=== PATIENT | female | born 1985 | race Caucasian/White ===

== ENCOUNTER 2016-10-19 12:19 | Emergency (ER) | payer MEDICAID, OTHER ==
[~2016-10-19] VITALS: Ht 167.6 cm; Wt 90.7 kg
[2016-10-19 13:29] LABS: Basophils # (auto) 0.2 uL; Basophils % (auto) 1.3 % (0.0-2.0); Eosinophils # (auto) 0.1 uL; Eosinophils % (auto) 0.7 % (0.0-7.0); Hematocrit 41.6 % (36.0-46.0); Hemoglobin 13.8 g/dL (12.2-16.2); Lymphocytes # (auto) 1.7 uL; Lymphocytes % (auto) 11.8 % (10.0-50.0); Mean Corpuscular Hemoglobin 29.3 pg (28.0-32.0); Mean Corpuscular Volume 88.7 fL (80.0-100.0); Mean Platelet Volume 9.2 fL (7.4-10.4); Monocytes % (auto) 6.8 % (0.0-12.0); Neutrophils # (auto) 11.5 uL; Neutrophils % (auto) 79.4 % (37.0-80.0); Platelet Count (auto) 256 10^3/uL (140-450); Red Cell Distribution Width 12.6 % (11.6-16.0); White Blood Cell 14.4 10^3/uL (4.4-10.8)
[2016-10-19 13:52] LABS: Albumin 3.6 g/dL (3.4-5.0); BUN/Creatinine Ratio 6.3; Bilirubin, Total 0.4 mg/dL (0.2-1.0); Calcium 8.9 mg/dL (8.5-10.1); Potassium 3.8 mmol/L (3.5-5.1); Total Protein 8.3 g/dL (6.4-8.2)
[2016-10-19] MEDS ORDERED: SODIUM CHLORIDE 0.9% 1,000 ML IVB ONE (15:35)
[2016-10-19] MEDS ORDERED: cefTRIAXone 1GM/50ML D5W 50 ML IV ONE (15:45)
[2016-10-19 16:12] LABS: INR 1.04 (0.9-1.15); Partial Thromboplastin Time 29.9 sec (22.64-33.71); Prothrombin Time 10.7 sec (9.37-12.3)
[2016-10-19 16:17] LABS: Urine Bilirubin Negative (Negative); Urine Color Yellow (Yellow); Urine Glucose Normal (Normal); Urine Ketone Negative (Negative); Urine Mucus FEW (None Seen); Urine Nitrite Negative (Negative); Urine RBC <1 /hpf (0 - 4); Urine Squamous Epithelial Cell FEW /hpf (<5); Urine Urobilinogen Normal (Negative); Urine pH 5.5 (5.0-8.0)
[2016-10-19 16:19] LABS: B-Type Natriuretic Peptide 4.11 pg/mL (0-100); Temperature: 23.1 C (20.0-25.0)
[2016-10-19 16:49] LABS: Urine Blood 2+ /uL (Negative)
[2016-10-19] MEDS ORDERED: ASPirin-EC 81 mg tab PO ONE ×2 (18:30→18:56)
[2016-10-19] MEDS ORDERED: KETOROLAC TROMETH 30 MG/ML 1ML VIAL IV ONE (18:30)
[2016-10-19 19:30] VITALS: BP 138/79
== END 2016-10-19 19:53 | disposition home or self-care (01) ==
LOC: ER 12:24
DX: J02.9 Acute pharyngitis, unspecified (principal); R07.89 Other chest pain; F17.210 Nicotine dependence, cigarettes, uncomplicated; J18.9 Pneumonia, unspecified organism; R94.6 Abnormal results of thyroid function studies; R06.02 Shortness of breath
CPT/HCPCS: 36415; 71020; 80053; 81001; 81025; 83735; 83880; 84443; 84484; 85025; 85379; 85610; 85730; 87040; 93005; 94761; 96365; 96375; 99285; J0696; J1885

== ENCOUNTER 2019-01-18 11:26 | Inpatient (IN) | payer MEDICAID ==
[~2019-01-18] VITALS: Ht 172.7 cm; Wt 112.3 kg
[2019-01-18 12:14] LABS: Basophils # (auto) 0 uL; Basophils % (auto) 0.4 % (0.0-2.0); Eosinophils # (auto) 0.1 uL; Eosinophils % (auto) 1.5 % (0.0-7.0); Hematocrit 46.3 % (36.0-46.0); Hemoglobin 15.5 g/dL (12.2-16.2); Lymphocytes # (auto) 1.8 uL; Lymphocytes % (auto) 24.8 % (10.0-50.0); Mean Corpuscular Hgb Conc. 33.4 g/dL (32.0-36.0); Mean Corpuscular Volume 89.6 fL (80.0-100.0); Monocytes # (auto) 0.5 uL; Monocytes % (auto) 6.9 % (0.0-12.0); Neutrophils # (auto) 4.8 uL; Neutrophils % (auto) 66.4 % (37.0-80.0); Nucleated Red Blood Cells % 0.1 %; Platelet Count (auto) 267 10^3/uL (140-450); Red Blood Cells 5.16 10^6/uL (4.0-5.20); White Blood Cell 7.2 10^3/uL (4.4-10.8)
[2019-01-18 12:51] LABS: Urine Bacteria FEW /hpf (None Seen); Urine Blood 1+ /uL (Negative); Urine Mucus FEW (None Seen); Urine WBC 188 /hpf (0 - 5)
[2019-01-18 12:51] LABS: Albumin 3.7 g/dL (3.4-5.0); Anion Gap 4 (5-15); Blood Urea Nitrogen 7 mg/dL (7-18); Calcium 9.3 mg/dL (8.5-10.1); Carbon Dioxide 28 mmol/L (21-32); Chloride 106 mmol/L (98-107); Glucose 89 mg/dL (74-106); Magnesium 2.4 mg/dL (1.6-2.6); Potassium 4.4 mmol/L (3.5-5.1); Sodium 138 mmol/L (136-145)
[2019-01-18 12:58] LABS: Alanine Aminotransferase 40 U/L (13-56); Alkaline Phosphatase 94 U/L (45-117); Aspartate Aminotransferase 25 U/L (15-37); BUN/Creatinine Ratio 8.4; Bilirubin, Total 0.3 mg/dL (0.2-1.0); GFR African American 101 mL/min; GFR Non-African American 83 mL/min
[2019-01-18 13:06] LABS: Amphetamine Screen, Urine POSITIVE (NEGATIVE); Barbiturate Scree,Urine NEGATIVE (NEGATIVE); Benzodiazephine Screen, Urine NEGATIVE (NEGATIVE); Cannabinoid Screen, Urine NEGATIVE (NEGATIVE)
[2019-01-18 13:13] LABS: Alcohol, Urine < 3.0 mg/dL (0-5); Cocaine Screen, Urine NEGATIVE (NEGATIVE); Opiate Scree,Urine NEGATIVE (NEGATIVE); Phencyclidine Screen, Urine NEGATIVE (NEGATIVE)
[2019-01-18] MEDS ORDERED: KETOROLAC TROMETH 30 MG/ML 1ML VIAL IV ONE (14:45)
[2019-01-18] MEDS ORDERED: SODIUM CHLORIDE 0.9% 1,000 ML IV ONE (14:45)
[2019-01-18] MEDS ORDERED: ONDANSETRON HCL 4 MG/2 ML VIAL IV ONE (14:45)
[2019-01-18] MEDS ORDERED: ACETAMINOPHEN 500 MG TAB PO PRN (17:00)
[2019-01-18] MEDS ORDERED: ONDANSETRON HCL 4 MG/2 ML VIAL IV PRN (17:00)
[2019-01-18] MEDS ORDERED: NITROGLYCERIN 0.4 MG SL TAB SL PRN (17:00)
[2019-01-18] MEDS ORDERED: MORPHINE SULF INJ 2 MG/ML SYRINGE 1ML IV PRN (17:00)
[2019-01-18] MEDS ORDERED: HYDROcodone-ACET 5/325MG TAB PO PRN (17:00)
[2019-01-18] MEDS ORDERED: cefTRIAXone 1GM/50ML D5W 50 ML IV ONE (17:15)
[2019-01-18 21:00] VITALS: BP 161/91
--- NOTE | 2019-01-18 21:00 | NUR ---
NORIS MATA states they want to leave the floor Against Medical Advice (AMA) to go outside and smoke. Patient encouraged to stay on floor and not smoke. Dr notified of patient's wishes. Patient advised of the risks and benefits of leaving AMA. Patient verbalized understanding and signed required AMA form.
--- NOTE | 2019-01-18 21:00 | NUR ---
Telemetry admit from ER HONG MATAEY admitted to Telemetry unit after SBAR received. Patient oriented to Jacki waldrop RN, unit, room, bed, and unit policies regarding patient care and visiting hours. Patient now on continuous telemetry monitoring, tele box #[id number] and telemetry reading on arrival to unit is SINUS RHYTHM . Patient weighed by bed scale and encouraged to call if they need something. All questions and concerns addressed, patient verbalized understanding.
[2019-01-18 21:05] VITALS: BP 161/91
[2019-01-18] MEDS: PROPRANOLOL HCL 20 MG TAB PO SCH (21:52)
[2019-01-18] MEDS: MORPHINE SULF INJ 2 MG/ML SYRINGE 1ML IV PRN (21:53)
--- NOTE | 2019-01-18 22:00 | NUR ---
PAGED HOSPITALIST FOR DIET ORDER
[2019-01-18 22:52] VITALS: BP 126/76
--- NOTE | 2019-01-18 23:53 | NUR ---
NEW ORDER RECEIVED FOR CARDIAC DIET
[2019-01-19] MEDS: SODIUM CHLORIDE 0.9% 1,000 ML IV SCH ×3 (00:57→18:15)
[2019-01-19] MEDS: MORPHINE SULF INJ 2 MG/ML SYRINGE 1ML IV PRN ×2 (03:59→09:55)
[2019-01-19 05:00] VITALS: BP 136/76
[2019-01-19 06:44] LABS: Basophils # (auto) 0 uL; Basophils % (auto) 0.6 % (0.0-2.0); Eosinophils # (auto) 0.2 uL; Eosinophils % (auto) 2.6 % (0.0-7.0); Hematocrit 39.9 % (36.0-46.0); Hemoglobin 13.6 g/dL (12.2-16.2); Lymphocytes # (auto) 2.5 uL; Lymphocytes % (auto) 38.2 % (10.0-50.0); Mean Corpuscular Hemoglobin 30.6 pg (28.0-32.0); Mean Corpuscular Hgb Conc. 34.2 g/dL (32.0-36.0); Mean Corpuscular Volume 89.6 fL (80.0-100.0); Monocytes # (auto) 0.5 uL; Monocytes % (auto) 7.5 % (0.0-12.0); Neutrophils # (auto) 3.3 uL; Neutrophils % (auto) 51.1 % (37.0-80.0); Nucleated Red Blood Cells % 0.1 %; Platelet Count (auto) 225 10^3/uL (140-450); Red Blood Cells 4.45 10^6/uL (4.0-5.20); Red Cell Distribution Width 13.1 % (11.8-14.3); White Blood Cell 6.4 10^3/uL (4.4-10.8)
[2019-01-19 07:16] LABS: BUN/Creatinine Ratio 10.7; Calcium 8.5 mg/dL (8.5-10.1); Cholesterol 141 mg/dL (< 200); HDL Cholesterol 27 mg/dL (40-59); LDL Cholesterol 102 mg/dL (< 100); Potassium 3.9 mmol/L (3.5-5.1); Triglycerides 186 mg/dL (< 150)
--- NOTE | 2019-01-19 07:22 | NUR ---
CLOSING NOTE REPORT ENDORSED TO DAY SHIFT RN PT RESTING IN BED, NO S/S OF DISTRESS NOTED CALL LIGHT WITHIN REACH
--- NOTE | 2019-01-19 08:46 | NUR ---
HEMATOLOGY/ONCOLOGY CONSULT PT SEEN BY DR. OSMAN, HE SAID HE WILL ORDER BRAIN MRI.
[2019-01-19 09:00] VITALS: BP 127/82
[2019-01-19] MEDS: PROPRANOLOL HCL 20 MG TAB PO SCH ×2 (09:55→21:15)
[2019-01-19] MEDS: PANTOPRAZOLE 40 MG/10 ML VIAL IV SCH (09:55)
--- NOTE | 2019-01-19 09:55 | NUR ---
PAIN PT COMPLAINING OF HEADACHE 05/28, PER PT TYLENOL AND NORCO IS NOT HELPING FOR THE PAIN, MORPHINE GIVEN ORDERED. PT EDUCATED ON MORPHINE SIDE EFFECTS. PT VERBALIZED UNDERSTANDING.
[2019-01-19] MEDS ORDERED: GADOPENTETATE DIMEGLUMINE (10MMOL/20 ML) VIAL IV ONE (11:12)
[2019-01-19 13:00] VITALS: BP 141/88
[2019-01-19 16:41] VITALS: BP 137/97
[2019-01-19] MEDS: cefTRIAXone 1GM/50ML D5W 50 ML IV SCH (17:30)
--- NOTE | 2019-01-19 17:56 | NUR ---
PAGED DR. THURMAN PT IS ASKING IF SHE CAN HAVE PAIN MEDICATION OTHER THAN MORPHINE, PER PT TORADOL WORKS FOR HER, WAITING FOR CALL BACK.
--- NOTE | 2019-01-19 18:58 | NUR ---
DR. THURMAN CALLED HE ORDERED IBUPROFEN 400MG PO Q8HRS PRN FOR PAIN, AND NEUROLOGY CONSULT FOR MIGRAINE.
[2019-01-19] MEDS ORDERED: ACETAMINOPHEN 500 MG TAB PO PRN (19:15)
--- NOTE | 2019-01-19 19:30 | NUR ---
OPENING NOTE REPORT RECEIVED FROM DAY SHIFT RN PATIENT IS A/OX4 RESTING IN BED, PLAYING ON PHONE. PHYSICAL ASSESSMENT DONE-SEE INTERVENTIONS. POC FOR TONIGHT DISCUSSED, ALL QUESTIONS ANSWERED. WILL MONITOR Q1H PRN THROUGHOUT SHIFT, CALL LIGHT WITHIN REACH.
[2019-01-19] MEDS: IBUPROFEN 400 MG TAB PO PRN (21:16)
[2019-01-19 22:03] VITALS: BP 150/104
[2019-01-20] VITALS (7 sets, daily range): BP systolic 114–152; BP diastolic 70–109
[2019-01-20] MEDS: SODIUM CHLORIDE 0.9% 1,000 ML IV SCH ×3 (01:46→19:39)
[2019-01-20] MEDS: MORPHINE SULF INJ 2 MG/ML SYRINGE 1ML IV PRN ×3 (01:50→18:40)
--- NOTE | 2019-01-20 01:54 | NUR ---
HEADACHE PATIENT C/O 07/28 PAIN HEADACHE PT STATES THAT MOTRIN "DID NOTHING TO HELP" OFFERED PATIENT PAULY, PATIENT STATES, "I'M NEVER TAKING THAT AGAIN, IT MADE ME THROW UP" PATIENT REQUESTED MORPHINE. EDUCATED PATIENT THAT A SIDE EFFECT OF MORPHINE IS HEADACHE AND THAT IT COULD POTENTIALLY MAKE HER HEADACHE WORSE. PATIENT VERBALIZED UNDERSTANDING AND STILL REQUESTED MORPHINE. MORPHINE ADMINISTERED ORDERED BY MD. WILL CONTINUE TO MONITOR
[2019-01-20 06:06] LABS: Immunoglobulin G, Serum 1767 mg/dL (700-1600)
[2019-01-20 06:45] LABS: Basophils # (auto) 0 uL; Basophils % (auto) 0.4 % (0.0-2.0); Eosinophils # (auto) 0.3 uL; Eosinophils % (auto) 3.4 % (0.0-7.0); Hematocrit 39.5 % (36.0-46.0); Hemoglobin 13.5 g/dL (12.2-16.2); Lymphocytes # (auto) 2.4 uL; Mean Corpuscular Hemoglobin 30.7 pg (28.0-32.0); Mean Corpuscular Hgb Conc. 34.3 g/dL (32.0-36.0); Mean Corpuscular Volume 89.7 fL (80.0-100.0); Monocytes # (auto) 0.4 uL; Monocytes % (auto) 5.6 % (0.0-12.0); Neutrophils # (auto) 4.5 uL; Neutrophils % (auto) 59.6 % (37.0-80.0); Nucleated Red Blood Cells % 0.1 %; Platelet Count (auto) 237 10^3/uL (140-450); Red Blood Cells 4.41 10^6/uL (4.0-5.20); Red Cell Distribution Width 12.8 % (11.8-14.3); White Blood Cell 7.6 10^3/uL (4.4-10.8)
[2019-01-20 06:53] LABS: Potassium 3.6 mmol/L (3.5-5.1)
[2019-01-20 07:00] LABS: BUN/Creatinine Ratio 9.2; Calcium 8.7 mg/dL (8.5-10.1)
--- NOTE | 2019-01-20 07:29 | NUR ---
CLOSING NOTE REPORT ENDORSED TO DAY SHIFT RN PATIENT IS RESTING IN BED, NO S/S OF DISTRESS NOTED CALL LIGHT WITHIN REACH
--- NOTE | 2019-01-20 08:41 | NUR ---
PT SEEN BY DR. OSMAN PT MADE AWARE OF THE MRI RESULT AND WITH PENDING BLOOD TEST TO CHECK FOR MYELOMA.
[2019-01-20] MEDS: PANTOPRAZOLE 40 MG/10 ML VIAL IV SCH (09:24)
[2019-01-20] MEDS: PROPRANOLOL HCL 20 MG TAB PO SCH ×2 (09:25→21:46)
[2019-01-20] MEDS ORDERED: LEVO500T21 PO (11:51)
--- NOTE | 2019-01-20 11:53 | NUR ---
PT SEEN BY DR. THURMAN HE SAID TO DISCONTINUE IV FLUID, PT CAN GO HOME IF CLEARED BY DR. HERNANDEZ AND DR. OSMAN.
--- NOTE | 2019-01-20 12:37 | NUR ---
PATIENT ACCEPTED WITH [facility]. START OF CARE WILL BE 24 TO 48 HOURS AFTER DISCHARGE. [phone].
--- NOTE | 2019-01-20 14:20 | NUR ---
CALLED DR. OSMAN'S OFFICE TO VERIFY IF PT IS OKAY FOR DISCHARGE, SPOKE TO FOOD SALES CLERK, SHE SAID DR. OSMAN IS WITH A PT AND BUSY AT THIS TIME, LEFT A PHONE NUMBER FOR CALL BACK.
--- NOTE | 2019-01-20 15:52 | NUR ---
assessment Patient is a 33 year old female who is alert and oriented. Patients cognitive abilities are intact. Prior to admission patient lived home with family and functioned independently. Patient informed me she is able to care for her own ADLs. Per patient she will return home to her prior living arrangements post discharge and family will transport her home. I informed patient she has a right to speak to a social science teacher regarding all care. I informed patient she has a right to participate in any and all discharge planning. Patient is aware of visiting hours on the hospital floor. I informed patient she has a right to privacy. Patient does not have a POA and advanced directive. I have offered patient information on POA and advanced directives. I informed the patient the advantages and benefits of having an Advanced Directive. Patient verbalized understanding and agreed to discharge plan. Per ss consult provide resources for substance cessation support counseling. Patient is refusing resources. Patient informed me she doesn't need anything. Addendum: 01/20/19 at 1554 by Ernestine FIGUEROA Amended: Links added.
--- NOTE | 2019-01-20 18:30 | NUR ---
PT SEEN BY DR. HERNANDEZ PER DR. HERNANDEZ PT IS NOT CLEARED FOR DISCHARGE.
[2019-01-20] MEDS: cefTRIAXone 1GM/50ML D5W 50 ML IV SCH (18:40)
--- NOTE | 2019-01-20 18:40 | NUR ---
Pain pt complaining of headache 07/28, pain medication given as ordered.
--- NOTE | 2019-01-20 19:11 | NUR ---
DR. HACKETT COVERING FOR DR. THURMAN, LEFT A MESSAGE TO INFORM THAT DR. HERNANDEZ DID NOT CLEAR THE PT FOR DISCHARGE.
--- NOTE | 2019-01-20 19:37 | NUR ---
OPENING NOTES RECEIVED REPORT FROM DAY SHIFT NURSE, CODY. PT IS AWAKE AND ALERT X 4 WITH NO S/S OF DISTRESS NOR PAIN. BED IS IN LOWEST POSITION WITH SIDE RAILS UP X 2. BED BRAKES ARE LOCKED AND CALL LIGHT IS WITH IN REACH. HOB IS 30 DEGREES. WILL CONTINUE TO MONITOR Q 1HR.
[2019-01-20] MEDS: METOCLOPRAMIDE HCL 10 MG TAB PO SCH (21:46)
[2019-01-20] MEDS: IBUPROFEN 400 MG TAB PO PRN (22:02)
[2019-01-21] MEDS: MORPHINE SULF INJ 2 MG/ML SYRINGE 1ML IV PRN ×2 (00:56→06:29)
[2019-01-21 05:00] VITALS: BP 127/85
[2019-01-21] MEDS: SODIUM CHLORIDE 0.9% 1,000 ML IV SCH (06:23)
[2019-01-21] MEDS: METOCLOPRAMIDE HCL 10 MG TAB PO SCH ×2 (06:47→11:50)
--- NOTE | 2019-01-21 07:16 | NUR ---
endorsed care to day shift nurse.
--- NOTE | 2019-01-21 08:30 | NUR ---
SPOKE WITH DR. OSMAN PER DR. OSMAN PT IS CLEARED FOR DISCHARGE.
[2019-01-21 09:00] VITALS: BP 138/78
[2019-01-21] MEDS: PANTOPRAZOLE 40 MG/10 ML VIAL IV SCH (09:27)
[2019-01-21] MEDS: PROPRANOLOL HCL 20 MG TAB PO SCH (09:28)
[2019-01-21] MEDS ORDERED: DexAMETHasone INJECTION 10 MG in D5W 5% 50 ML IV SCH (10:00)
[2019-01-21 12:48] VITALS: BP 147/108
--- NOTE | 2019-01-21 13:55 | NUR ---
DR. THURMAN CALLED DR. THURMAN ORDERED TO DISCHARGE THE PT.
--- NOTE | 2019-01-21 14:00 | NUR ---
SPOKE WITH DR. HERNANDEZ PER DR. HERNANDEZ PT IS OKAY FOR DISCHARGE.
--- NOTE | 2019-01-21 14:35 | NUR ---
PT SEEN BY DR. THURMAN INSTRUCTED TO FOLLOW UP WITH EAR, NOSE AND THROAT SPECIALIST.
--- NOTE | 2019-01-21 14:50 | NUR ---
Discharge instructions given as ordered. Encourage to follow up with DR. JACQUI HAMILTON, PT STATED SHE HAS APPOINTMENT ON 01/31/19 AND WILL KEEP HER APPOINTMENT as instructed. All questions and concerns addressed. Patient verbalized understanding. Medication reconciliation form completed and copy given to patient. INSTRUCTED TO BOW MAKER HER PRESCRIPTION FOR ANTIBIOTIC AT [facility]. IV removed with catheter intact, pressure dressing applied. Telemetry unit returned to ICU. Patient PREFERRED TO WALK with all personal belongings, accompanied BY family member. No distress noted at time of departure.
== END 2019-01-21 14:15 | disposition home health service (06) | DRG 691 ==
LOC: ER 11:26 → TELE 16:58 → TELE-WESTW 20:55
PROVIDERS: ADMIT Nurse Practitioner Acute Care; ATTEND Internal Medicine
DX: C90.00 Multiple myeloma not having achieved remission (principal); G35 Multiple sclerosis; E03.9 Hypothyroidism, unspecified; N39.0 Urinary tract infection, site not specified; E66.9 Obesity, unspecified; M27.8 Other specified diseases of jaws; I10 Essential (primary) hypertension; F15.90 Other stimulant use, unspecified, uncomplicated; Z91.19 Patient's noncompliance with other medical treatment and regimen; F17.210 Nicotine dependence, cigarettes, uncomplicated; G43.909 Migraine, unspecified, not intractable, without status migrainosus; Z82.3 Family history of stroke; Z82.49 Family history of ischemic heart disease and other diseases of the circulatory system; Z83.3 Family history of diabetes mellitus; Z92.3 Personal history of irradiation; Z98.891 History of uterine scar from previous surgery; Z68.37 Body mass index [BMI] 37.0-37.9, adult
CPT/HCPCS: 36415; 70450; 70553; 71045; 80048; 80053; 80061; 80307; 81001; 81025; 82232; 82784; 82785; 83615; 83735; 84155; 84165; 84443; 84484; 85025; 86334; 87086; 87088; 87186; 93005; 93306; 94761; 96361; 96365; 96375; C9113; G0378; J0696; J1100; J1885; J2405; J7060

== ENCOUNTER 2019-06-06 20:25 | Emergency (ER) | payer MEDICAID ==
[~2019-06-06 20:25] MED LIST: LEVO500T21 PO
== END 2019-06-06 21:15 | disposition left against medical advice (07) ==
LOC: ER 20:29
DX: M79.602 Pain in left arm (principal); Z53.21 Procedure and treatment not carried out due to patient leaving prior to being seen by health care provider